=== PATIENT | female | born 1975 | race American Indian/Alaskan Native ===

== ENCOUNTER 2017-04-10 07:15 | Day surgery (SDC) | payer OTHER ==
[2017-04-10] MEDS ORDERED: Propofol 10 mg/ml Inj (20 ML) ONE (09:16)
[2017-04-10] MEDS ORDERED: Lidocaine Hydrochloride 10 ML INJ ONE (09:16)
== END 2017-04-10 13:38 | disposition home or self-care (01) ==
LOC: C.ENDO 07:15
PROVIDERS: ATTEND Internal Medicine Gastroenterology
DX: K29.70 Gastritis, unspecified, without bleeding (principal)
CPT/HCPCS: 43239; 84703; J2704; J3010

== ENCOUNTER 2018-12-07 09:18 | Outpatient (CLI) | payer BC | END 2018-12-07 09:19 | disposition home or self-care (01) | LOC: C.CARD 09:18 ==